=== PATIENT | male | born 1990 ===

== ENCOUNTER 2016-08-01 00:39 | Inpatient (IN) | payer SELFPAY ==
--- NOTE | 2016-08-01 00:50 | ED PDOC ---
HPI: Psych/Substance Abuse Time Seen by Provider: 08/01/16 00:40 Chief Complaint (Nursing): Alcohol Ingestion Chief Complaint (Provider): ETOH History Per: Patient Additional Complaint(s): Pt is a 25 yo male, no PMH, presents to ED for evaluation of severe depression and suicidal ideations. pt denies a plan, but admits to thoughts of suicide due to relationship issues. No homicidal ideations. No physical, complaints. Pt placed on 1:1 for safety. Past Medical History Reviewed: Nursing Documentation, Vital Signs Vital Signs: Last Vital Signs Temp 97.9 F 08/01/16 00:43 Pulse 80 08/01/16 00:43 Resp 16 08/01/16 00:43 BP 157/77 H 08/01/16 00:43 Pulse Ox 97 08/01/16 00:43 - Medical History PMH: No Chronic Diseases - Surgical History Surgical History: No Surg Hx - Family History Family History: States: No Known Family Hx - Living Arrangements Living Arrangements: With Family - Social History Current smoker - smoking cessation education provided: Yes Alcohol: Social Drugs: Denies - Allergies Allergies/Adverse Reactions: Allergies Allergy/AdvReac Type Severity Reaction Status Date / Time No Known Allergies Allergy Verified 08/01/16 00:49 Review of Systems ROS Statement: Except As Marked, All Systems Reviewed And Found Negative Psych: Positive for: Depression, Suicidal ideation Physical Exam - Reviewed Nursing Documentation Reviewed: Yes Vital Signs Reviewed: Yes - Physical Exam Appears: Positive for: Well, Non-toxic, No Acute Distress Head Exam: Positive for: ATRAUMATIC, NORMAL INSPECTION, NORMOCEPHALIC Skin: Positive for: Normal Color, Warm, DRY Eye Exam: Positive for: EOMI, Normal appearance, PERRL ENT: Positive for: Normal ENT Inspection Neck: Positive for: Normal, Painless ROM Cardiovascular/Chest: Positive for: Regular Rate, Rhythm Respiratory: Positive for: CNT, Normal Breath Sounds Gastrointestinal/Abdominal: Positive for: Normal Exam, Bowel Sounds, Soft Back: Positive for: Normal Inspection Extremity: Positive for: Normal ROM Neurologic/Psych: Positive for: Alert, Oriented - Laboratory Results Result Diagrams: 08/01/16 01:25 08/01/16 01:25 - ECG O2 Sat by Pulse Oximetry: 97 Medical Decision Making Medical Decision Making: Diagnostics ordered, labs reviewed and Pt cleared for crisis eval. After eval, Pt to be admitted for depression by Dr. Parekh Disposition - Clinical Impression Clinical Impression: Depression - Patient ED Disposition Is Patient to be Admitted: Yes - Disposition Disposition Time: 05:00 Condition: STABLE - POA Present On Arrival: None
[2016-08-01 01:34] LABS: BASO % 0.5 % (0.0-2.0); EOS # 0.1 K/uL (0.0-0.7); EOS % 0.9 % (0.0-4.0); HEMATOCRIT 43.4 % (35.0-51.0); LYMPH # 2.3 K/uL (1.0-4.3); LYMPH % 27.3 % (20.0-40.0); MEAN CELL VOLUME 91.5 fl (80.0-94.0); MEAN CORPUSCULAR HEMOGLOBIN 31.5 pg (27.0-31.0); MEAN CORPUSCULAR HGB CONC 34.4 g/dL (33.0-37.0); MEAN PLATELET VOLUME 8.4 fl (7.2-11.7); MONO # 0.6 K/uL (0.0-0.8); MONO % 7.3 % (0.0-10.0); NEUT # 5.5 K/uL (1.8-7.0); RED CELL DISTRIBUTION WIDTH 12.9 % (11.5-14.5); WHITE BLOOD COUNT 8.6 K/uL (4.8-10.8)
[2016-08-01 01:39] LABS: RBC URINE 5 /hpf (0-3); URINE BILIRUBIN NEGATIVE (NEGATIVE); URINE BLOOD NEGATIVE (NEGATIVE); URINE COLOR YELLOW (YELLOW); URINE GLUCOSE (UA) NEG (Normal); URINE KETONE NEGATIVE (NEGATIVE); URINE LEUKOCYTE ESTERASE NEG Leu/uL (Negative); URINE PROTEIN NEGATIVE (NEGATIVE); URINE UROBILINOGEN 0.2-1.0 mg/dL (0.2-1.0); WBC URINE 2 /hpf (0-5)
[2016-08-01 01:48] LABS: CHLORIDE 107 mmol/L (98-107); SODIUM 141 mmol/l (132-148)
[2016-08-01 01:49] LABS: POTASSIUM 3.8 MMOL/L (3.6-5.0)
[2016-08-01 01:51] LABS: ALB/GLOB RATIO 1.5 (1.0-2.1); ALKALINE PHOSPHATASE 64 U/L (38-126); ALT/SGPT 47 U/L (21-72); AST/SGOT 31 U/L (17-59); BILIRUBIN,TOTAL 0.4 mg/dl (0.2-1.3); BLOOD UREA NITROGEN 21 mg/dl (9-20); CARBON DIOXIDE 24 mmol/L (22-30); GFR AFRICAN-AMERICAN > 60; GLUCOSE,RANDOM 120 mg/dL (75-110); TOTAL PROTEIN 6.9 G/DL (6.3-8.2)
[2016-08-01 01:52] LABS: ALCOHOL SERUM < 10 mg/dl (0-10); CALCIUM 8.6 mg/dL (8.4-10.2)
[2016-08-01 08:15] VITALS: BP 145/49; PULSE 60; TEMP 98
[2016-08-01 09:42] VITALS: O2SAT 100
[2016-08-01 13:15] VITALS: RESP 18
--- NOTE | 2016-08-01 16:37 | PCM.PSYCH ---
Initial Psychiatric Evaluation - Initial Psychiatric Evaluation Chief Complaint (in patient's own words): i m depressed i am having issues with my lady I was thinking of hurting my self Patient's Reaction to Hospitalization: pt was admitted voluntarily History of Present Illness and Precipitating Events: presents to [facility] via [facility] er for reported suicidal ideations after recent break up with girlfriend of approx 2-3 years reports that has three children 3,2 ,1 years old. reports that has always had temper, gets easily frustrated, believes over extends self to others and then does not receive appreciation. reports that was incarcerated for 7 months recently (released approx. 3 months ago-"hustling". 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 reports chronic issues with sleep requiring self to over work out at gym become exhausted and then smoke marajuana to fall asleep which occurs more often than not. originally from [place], reports being distant from family, tries to be nice to people, does "everything clean, pain, shop, pay and treat people like they were were world then they don't appreciate me-I just want to be loved". Pt is noted to be labile, talks few minutes, yells screams, walks away. pt was noted to be talking on telephone with someone and yelling and crying at times. Pt reports was talking to ex girl friend. Current Medications: Active Medications Generic Name Dose Route Start Last Admin Trade Name Freq PRN Reason Stop Dose Admin Lorazepam 2 mg 08/01/16 15:25 08/01/16 15:37 Ativan PO 2 mg Q6 PRN Administration Agitation Past Psychiatric History - Past Psychiatric History Previous Treatment History: Inpatient Prior Professional Help: reports was incarcerated with past year Prior Psychiatric Treatment: defers detail Explanation of prior treatment: reported prior hx. of bipolar, adhd, depression , supstance use History of Abuse: defers (was incarcerated) History of ETOH/Drug Use: reports use of thc Pertinent Medical Hx (Current Medical&Sleep Prob, Allergies): Allergies Allergy/AdvReac Type Severity Reaction Status Date / Time No Known Allergies Allergy Verified 08/01/16 00:49 No Known Home Med 08/01/16 Review of Systems - Integumentary Additional comments: various tatoos reported as being "old" - Psychiatric Psychiatric: Abnormal Sleep Pattern, Anxiety, Depression, Difficulty Concentrating, Irritability, Mood Swings, Suicidal Ideation Mental Status Examination - Personal Presentation Personal Presentation: Looks stated age - Affect Additional comments: labile - Motor Activity Motor Activity: Psychomotor Agitation - Reliability in Providing Information Reliability in Providing Information: Poor, due to altered mood - Speech Additional comments: loud, soft - Mood Mood: Depressed, Anxious - Formal Thought Process Formal Thought Process: No Impairment - Obsessions/Compulsions Description of Obsession/Compulsion: defers - Cognitive Functions Orientation: Person, Place, Situation, Time Sensorium: Alert Attention/Concentration: Easily distracted Judgement: Imparied, as evidence by: Poor judgement, Imparied, as evidence by: Lack of insight into illness - Risk Risk: Suicidal, Elopement, Diminished functioning - Limitations Additional comments: decreased insight, labililty, no previous treatment , use of thc DSM 5 DX - DSM 5 DSM 5 Diagnosis: major depressive disorder moderate severe hx bipolar disorder, hx of adhd substance use:thc active family cirucumstances hx incarceration - Recommended/Plan of Treatment Treatment Recommendations and Plan of Treatment: admission per attending vital signs and clinical observation per protocol and per clinical status ativan 2mg po now haldol 2mg and bendryl 25mg po x once dose pt is irritable intermittently adherent, labile then refusing treatment further pt demanding to leave-defers formal written notice-48 hour notice explained at this time pt does not have insight and judgment and is a risk to self-screening will be ordered for possible involuntary committment per attending will attempt valproic acid 375mg po bid for mood stabilzation Projected ELOS: 2-5 days Prognosis: guarded Discharge Plan and Discharge Criteria: safety - Smoking Cessation Smoking Cessation Initiated: No Reason for not providing: pt defers patch
[2016-08-01] MEDS ORDERED: DiphenhydrAMINE 50 mg/ml Inj IVP PRN (16:51)
[2016-08-01] MEDS ORDERED: Divalproex 125 mg DR (BID formulation) PO SCH (17:00)
--- NOTE | 2016-08-02 10:23 | RAD ---
PROCEDURE: CHEST RADIOGRAPH, 1 VIEW HISTORY: screen COMPARISON: None available. FINDINGS: LUNGS: Clear. PLEURA: No pneumothorax or pleural fluid seen. CARDIOVASCULAR: Normal. OSSEOUS STRUCTURES: No significant abnormalities. VISUALIZED UPPER ABDOMEN: Normal. OTHER FINDINGS: None. IMPRESSION: No active disease.
--- NOTE | 2016-08-02 12:05 | CP.PCM.CON ---
History of Present Illness - History of Present Illness History of Present Illness: Attempted to see patient, however patient was highly agitated and was placed in quiet room. Unable to see and examined patient. Past Patient History - Past Social History Alcohol: Social Drugs: Denies - CARDIAC Hx Cardiac Disorders: No - PULMONARY Hx Tuberculosis: No - NEUROLOGICAL HX Cerebrovascular Accident: No Hx Seizures: No - HEMATOLOGICAL/ONCOLOGICAL Hx Cancer: No Hx Human Immunodeficiency Virus (HIV): No - MUSCULOSKELETAL/RHEUMATOLOGICAL Hx Falls: No - GENITOURINARY/GYNECOLOGICAL Hx Sexually Transmitted Disorders: No - PSYCHIATRIC Hx Anxiety: Yes Hx Bipolar Disorder: Yes Hx Depression: Yes Hx Substance Use: Yes - SURGICAL HISTORY Hx Surgeries: No - ANESTHESIA Hx Anesthesia: No Meds Allergies/Adverse Reactions: Allergies Allergy/AdvReac Type Severity Reaction Status Date / Time No Known Allergies Allergy Verified 08/01/16 00:49 - Medications Medications: Current Medications Diphenhydramine HCl (Benadryl) 50 mg IVP Q6 PRN PRN Reason: Agitation Diphenhydramine HCl (Benadryl) 50 mg PO Q6 PRN PRN Reason: eps anxiety Last Admin: 08/01/16 23:11 Dose: 50 mg Divalproex Sodium (Depakote Dr(*Bid*)) 375 mg PO BID FRITZ Last Admin: 08/01/16 22:13 Dose: 375 mg Haloperidol (Haldol) 5 mg PO QID PRN PRN Reason: Agitation Last Admin: 08/01/16 23:11 Dose: 5 mg Haloperidol Lactate (Haldol) 5 mg IM Q6 PRN PRN Reason: Agitation Lorazepam (Ativan) 2 mg PO Q6 PRN PRN Reason: Agitation Last Admin: 08/01/16 22:12 Dose: 2 mg Lorazepam (Ativan) 2 mg IVP Q6 PRN PRN Reason: SEVERE AGITATION Results - Vital Signs Recent Vital Signs: Last Vital Signs Temp 98 F 08/01/16 09:41 Pulse 60 08/01/16 09:41 Resp 18 08/01/16 11:17 BP 145/49 L 08/01/16 09:41 Pulse Ox 100 08/01/16 09:41 - Labs Result Diagrams: 08/01/16 01:25 08/01/16 01:25
--- NOTE | 2016-08-04 12:24 | PCM.PYCHDC ---
Mental Status Examination - Mental Status Examination Orientation: Person, Place, Time Memory: Intact Mood: Neutral Affect: Broad (speech has improved in terms of less irritiable has slept better per self report , attention has somehat improved, thought process somewhat less loose, appears somewhat better at self regulating speech and irritbability) Attention: WNL Concentration: WNL Association: WNL Fund of Knowledge: WNL Formal Thought Process: No Impairment Description of patient's judgement and insight: improved Psychotic Thoughts and Behaviors: denies Suicidal Ideation: No Current Homicidal Ideation?: No Discharge Summary - Discharge Note Reason for Hospitalization: pt was admitted admitted to [facility] via emergency. self presentation to er for feelings of being overwhelmed/suicidal ideation was smoking thc-thc reportedly is used to calm nerves and focus better. reports when anxious or angry shakes legs. recently separation from girlfriend of several years. this relationship recently ended. pt was somewhat obtuse related to circumstances of reported breakup reports she initiated 2nd to his behavior related to his yelling. pt denies any physical aggression towards ex girlfriend or children. reports he(pt ) has threee children with this woman each child 1 year apart (1,2,3). woman reportedly has two other children from another man. Pt reports feels as though he is responsible for all of the children financially and emotionally. Denies any desire to harm any of the children. 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 Reports has long standing hx of thc use. was recently released from [facility]ision related to "drugs"-defers temper. Psychiatric History (includes Medical, Family, Personal Hx): pt reports intermittent treatment since age 17, mostly when incarcerated, Laboratory Data: per chart Consultations:: List each consultation separately and include: 1. Reason for request. 2. Findings. 3. Follow-up Consultations: hospitalist Summary of Hospital Course include:: 1. Description of specific treatment plan utilized for patients during their course of treatmen. 2. Summarize the time- course for resolution of acute symptoms and/or regressed behaviors. 3. Describe issues identified and worked on during hospitalization. 4. Describe medication utilized. 5. Describe medical problems identified and treated. 6. Reassessment of suicide risk Summary of Hospital Course: presents to [facility] via [facility] er for reported suicidal ideations after recent break up with girlfriend of approx 2-3 years reports that has three children 3,2 ,1 years old. reports that has always had temper, gets easily frustrated, believes over extends self to others and then does not receive appreciation. reports that was incarcerated for 7 months recently (released approx. 3 months ago-"hustling". 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 reports chronic issues with sleep requiring self to over work out at gym become exhausted and then smoke marajuana to fall asleep which occurs more often than not. originally from [place], reports being distant from family, tries to be nice to people, does "everything clean, pain, shop, pay and treat people like they were were world then they don't appreciate me-I just want to be loved". Pt is noted to be labile, talks few minutes, yells screams, walks away. pt was noted to be talking on telephone with someone and yelling and crying at times. Pt reports was talking to ex girl friend. pt was noted to cry at one point stating that all that he wants is "to be loved"-was crying notable tears. Pt was noted to be labile and irritable was offered 2mg lorazepam po x one dose-pt initially refused but later accepted. Pt was somewhat calmer for approx. 2 hours again became labile yelling was offered haldol 2mg po with benadryl 50 mg po x 1 dose-pt was noted to rest (had stated that had not been sleepng well and that "this was the first time he has slept well in a long time". pt was seen by hospitalist. cxr ray was ordered at bedside and was free of notable pathology. pt spoke with this adjusto writer operator and weekday babysitter and was agreeable to referral to [facility] for follow up. Since pt signed a 48 hour notice, did not meet screening criteria and had refused standing medications-pt was discharged without prescriptions. Pt was given the number [phone] and [phone] ([facility] ). pt reported spoke with female significant other and resolved reported issue. Pt has a place to stay, defers desire to harm self or others, is verbally agreeable to referral for follow up, reports wants to and has to work to support children (jacob) pt was discharged per attending MD. Reviewed with pt the likely effects thc mood. pt was discharged off of unit without incident. Reinforced safer sex, consistant condom use (reports is massage therapist and a "hustler". Encourage pt to follow up [facility] or [facility] for medical follow up. - Final Diagnosis (DSM 5) Condition upon Discharge: STABLE DSM 5: Depressive Disorder subtance use:thc active substance induced mood disorder Intermittent Explosive Disorder Insomnia family circumstances multiple incarcerations Disposition: HOME/ ROUTINE Follow-up Treatment Plan: admission per attending vital signs and clinical observation per protocol and per clinical status ativan 2mg po now haldol 2mg and bendryl 25mg po x once dose pt is irritable intermittently adherent, labile then refusing treatment further pt demanding to leave-defers formal written notice-48 hour notice explained at this time pt does not have insight and judgment and is a risk to self-screening will be ordered for possible involuntary committment per attending will attempt valproic acid 375mg po bid for mood stabilzation - Smoking Cessation Smoking Cessation Medication prescribed: No Reason for not providing: pt deferred - Antipsychotic Medications Pt discharged on 2 or more routine antipsychotic medications: No - Justification for 2 or more meds Justification other than those listed above:: pt received prn haldol 2mg po with benadryl 50mg po x 1, pt was prescribed depakote dr 250mg po bid-pt deferred. previously pt received lorazepam 2mg po x 1 dose. pt signed a 48 hour notice did not meet screening criteria was discharged per attending
== END 2016-08-02 01:00 | disposition home or self-care (01) | DRG 885 ==
LOC: H.ER 00:39 → H.ERHOLD 04:59 → H.PSYCH 11:14
PROVIDERS: ADMIT Psychiatry & Neurology Psychiatry; ATTEND Psychiatry & Neurology Psychiatry
PROC: GZHZZZZ Group Psychotherapy (ICD-10-PCS; principal; 2016-08-01)
PROC: GZ58ZZZ Individual Psychotherapy, Cognitive-Behavioral (ICD-10-PCS; 2016-08-01)
DX: F32.1 Major depressive disorder, single episode, moderate (principal); F90.9 Attention-deficit hyperactivity disorder, unspecified type; F12.10 Cannabis abuse, uncomplicated; F17.200 Nicotine dependence, unspecified, uncomplicated